=== PATIENT | male | born 1960 | race Caucasian/White ===

== ENCOUNTER 2018-03-06 11:04 | Emergency (ER) | payer OTHER ==
[2018-03-06] MEDS ORDERED: SUPPLEMENTS PO (11:14)
[2018-03-06 11:44] LABS: ABSOLUTE BASOPHIL COUNT 0 /CUMM (0.0-0.2); ABSOLUTE EOSINOPHIL COUNT 0.3 /CUMM (0.0-0.7); ABSOLUTE GRANULOCYTE CT 3.8 /CUMM (1.4-6.5); ABSOLUTE MONOCYTE COUNT 0.6 /CUMM (0.10-0.60); BASOPHIL % 0.7 % (0.0-2.0); GRANULOCYTE % 66.1 % (42.2-75.2); HEMATOCRIT 42.7 % (42-52); MEAN CORPUSCULAR HGB 31.9 PG (27.0-31.0); MEAN CORPUSCULAR HGB CONC 34.3 G/DL (33.0-37.0); MEAN CORPUSCULAR VOLUME 93.2 FL (80.0-94.0); MEAN PLATELET VOLUME 7.9 FL (7.4-10.4); PLATELET COUNT 233 /CUMM (130-400); RBC DISTRIBUTION WIDTH 13.9 % (11.5-14.5); RED BLOOD CELL CT 4.59 /CUMM (4.70-6.10); WHITE BLOOD CELL COUNT 5.8 /CUMM (4.8-10.8)
--- NOTE | 2018-03-06 12:23 | ED CARDIAC/CP/PALPITATIONS ---
History of Present Illness General Chief Complaint: Chest Pain Stated Complaint: CHEST PAIN X 3 DAYS Source: patient, old records Exam Limitations: no limitations Vital Signs & Intake/Output Vital Signs & Intake/Output Vital Signs Date Time Temp Pulse Resp B/P B/P Pulse O2 O2 Flow FiO2 Mean Ox Delivery Rate 03/06 1224 98.2 80 20 127/62 96 Room Air 03/06 1203 98 Room Air 03/06 1113 97.0 79 20 128/73 98 Allergies Coded Allergies: No Known Allergies (11/28/15) Reconcile Medications [SUPPLEMENTS] 1 TAB PO DAILY HEAlTH (Reported) Triage Note: PER PT 4 DAYS OF INTERMITTANT CP NONRADIATING NO ASSOC SYMPTOMS, THIS AM STARTED AT 0730 AND GOT WORSE BY 0930. NOW 11/04 Triage Nurses Notes Reviewed? yes Onset: 4 days Duration: day(s):, continues in ED, intermittent Timing: recent history Quality/Severity: mild, moderate, aching, burning Location: abdomen Radiation: substernal, epigastric Activities at Onset: rest Prior Chest Pain/Card Workup: echocardiography, stress test Modifying Factors: Improves With: antacids, rest. Nitro Today/Relief: no nitro taken today Aspirin Today: no aspirin today Associated Symptoms: abdominal pain HPI: 4 days prior to admission patient complains of episodic abdominal discomfort radiating to his chest described as achy burning mild to moderate improved with eating. He denies fever chills nausea vomiting diarrhea cough shortness of breath headache dysuria rash bleeding. Past History Travel History Traveled to [place] past 21 day No Medical History Any Pertinent Medical History? see below for history Neurological: NONE EENT: NONE Cardiovascular: NONE Respiratory: NONE Gastrointestinal: NONE Hepatic: NONE Renal: NONE Musculoskeletal: pmr Psychiatric: NONE Endocrine: NONE Surgical History Surgical History: non-contributory Psychosocial History What is your primary language Kazakh Tobacco Use: Never used Family History Hx Contributory? No Review of Systems Review of Systems Constitutional: Reports: no symptoms. EENTM: Reports: no symptoms. Respiratory: Reports: no symptoms. Cardiovascular: Reports: see HPI, chest pain. GI: Reports: see HPI, abdominal pain. Genitourinary: Reports: no symptoms. Musculoskeletal: Reports: no symptoms. Skin: Reports: no symptoms. Neurological/Psychological: Reports: no symptoms. Hematologic/Endocrine: Reports: no symptoms. Immunologic/Allergic: Reports: no symptoms. All Other Systems: Reviewed and Negative Physical Exam Physical Exam General Appearance: well developed/nourished, alert, awake, anxious, comfortable Head: atraumatic, normal appearance Eyes: Bilateral: normal appearance, PERRL, EOMI. Ears, Nose, Throat: normal pharynx, normal ENT inspection, hearing grossly normal Neck: normal inspection, supple, full range of motion, no midline tenderness Respiratory: normal breath sounds, chest non-tender, no respiratory distress, quiet respiration, lungs clear Cardiovascular: regular rate/rhythm, normal peripheral pulses, norml femoral pulses equa Peripheral Pulses: 4+ carotid (R), 4+ carotid (L) Gastrointestinal: normal bowel sounds, soft, non-tender, no organomegaly Back: normal inspection, normal range of motion, no vertebral tenderness Extremities: normal inspection, normal capillary refill, normal range of motion, no edema Neurologic/Psych: no motor/sensory deficits, awake, alert, oriented x 3, normal gait, normal mood/affect, soaker II-XII nml as tested Reflexes: 2+: bicep (R), bicep (L). Skin: intact, normal color, warm/dry Lymphatic: no anterior cervical saima Comments: Improved after GI cocktail Core Measures ACS in differential dx? No CVA/TIA Diagnosis No Sepsis Present: No Sepsis Focused Exam Completed? No Progress Differential Diagnosis: costochondritis, hyperkalemia, musculoskeletal pain, pancreatitis, PUD/GERD Plan of Care: Orders Procedure Date/time Status TROPONIN LEVEL 03/06 1112 Complete LIPASE 03/06 1112 Complete COMPREHENSIVE METABOLIC PANEL 03/06 1112 Complete CBC WITHOUT DIFFERENTIAL 03/06 1112 Complete AMYLASE 03/06 1112 Complete EKG 03/06 1105 Active Laboratory Tests 03/06/18 1122: Anion Gap 11, Estimated GFR > 60, BUN/Creatinine Ratio 17.8, Glucose 95, Calcium 9.8, Total Bilirubin 0.8, AST 28, ALT 31, Alkaline Phosphatase 47, Troponin I < 0.01, Total Protein 6.8, Albumin 4.0, Globulin 2.8, Albumin/Globulin Ratio 1.4, Amylase 57, Lipase 173, CBC w Diff NO MAN DIFF REQ, RBC 4.59 L, MCV 93.2, MCH 31.9 H, MCHC 34.3, RDW 13.9, MPV 7.9, Gran % 66.1, Lymphocytes % 17.8 L, Monocytes % 10.4 H, Eosinophils % 5.0, Basophils % 0.7, Absolute Granulocytes 3.8, Absolute Lymphocytes 1.0 L, Absolute Monocytes 0.6, Absolute Eosinophils 0.3, Absolute Basophils 0 Initial ED EKG: normal axis, normal p-waves, normal QRS complex, normal sinus rhythm, no ST T wave changes, 1st degree heart block Prior EKG: unchanged Rhythm Strip: normal sinus rhythm Departure Departure Time of Disposition: 1225 Disposition: HOME OR SELF CARE Condition: Stable Clinical Impression Primary Impression: Gastritis Secondary Impressions: Chest pain syndrome Referrals: Jorge Alberto [place],Saad Fabian Call for GI follow up Eri [place],Anastacio Rowell (PCP/Family) Departure Forms: Customer Survey General Discharge Information Prescriptions: Current Visit Scripts Pantoprazole Sodium (Protonix) 1 TAB PO DAILY #30 TAB Hyoscyamine Sulfate (Levsin-Sl) 1-2 TAB SL Q4P PRN abdominal pain #30 TAB Critical Care Note Critical Care Note Critical Care Time: non-applicable
[2018-03-06 12:24] VITALS: BP 127/62
[2018-03-06] MEDS ORDERED: LEVSIN-SL0.125 MG SL (12:28)
[2018-03-06] MEDS ORDERED: PROTONIX20 M1 PO (12:28)
== END 2018-03-06 12:38 ==
LOC: ERH 11:04
PROVIDERS: Physician Assistant
DX: K29.70 Gastritis, unspecified, without bleeding (principal); R07.1 Chest pain on breathing; R10.9 Unspecified abdominal pain
CPT/HCPCS: 93005; 93010